=== PATIENT | male | born 1970 | race Caucasian/White ===

== ENCOUNTER 2023-07-10 13:46 | Emergency (ER) | payer OTHER ==
[2023-07-10] MEDS ORDERED: Ibuprofen 800 MG Tab PO ONE (14:11)
[2023-07-10] MEDS ORDERED: Acetaminophen 500 MG Tab PO ONE (14:11)
[2023-07-10] MEDS ORDERED: Lidocaine 2% Viscous Solution 15 ML UD TOP ONE (14:15)
[2023-07-10] MEDS: Lidocaine 2% Viscous Solution 15 ML UD PO ONE (14:30)
[2023-07-10] MEDS ORDERED: Mupirocin Oint 22 GM Tube TOP ONE ×2 (14:47→15:00)
[2023-07-11] MEDS: Lidocaine 2% Viscous Solution 15 ML UD PO ONE (08:47)
== END 2023-07-10 15:20 | disposition home or self-care (01) ==
LOC: FB.ED 13:46
DX: T22.212A Burn of second degree of left forearm, initial encounter (principal); T24.212A Burn of second degree of left thigh, initial encounter; T22.262A Burn of second degree of left scapular region, initial encounter; T23.292A Burn of second degree of multiple sites of left wrist and hand, initial encounter; T31.0 Burns involving less than 10% of body surface; F17.210 Nicotine dependence, cigarettes, uncomplicated; X11.8XXA Contact with other hot tap-water, initial encounter
CPT/HCPCS: 99283; A9270-GY